=== PATIENT | female | born 1975 | race Native Hawaiian/Other Pacific Islander ===

== ENCOUNTER 2017-07-15 13:08 | Outpatient (CLI) | payer OTHER ==
[~2017-07-15] VITALS: Ht 162.6 cm; Wt 63.5 kg
== END 2017-07-15 15:15 | disposition home or self-care (01) ==
LOC: INF 13:08
DX: D64.89 Other specified anemias (principal)
CPT/HCPCS: 96365; Q0138

== ENCOUNTER 2017-07-21 13:12 | Outpatient (CLI) | payer OTHER ==
[~2017-07-21] VITALS: Ht 162.6 cm; Wt 63.5 kg
[2017-07-21 13:30] VITALS: BP 123/76; TEMP 98
[2017-07-21 14:22] VITALS: BP 116/70
== END 2017-07-21 15:10 | disposition home or self-care (01) ==
LOC: INF 13:12
DX: D64.89 Other specified anemias (principal)
CPT/HCPCS: 96365; Q0138

== ENCOUNTER 2017-08-31 13:48 | Outpatient (CLI) | payer OTHER | END 2017-08-31 19:22 | disposition home or self-care (01) | LOC: RAD 13:48 | DX: M25.512 Pain in left shoulder (principal) ==

== ENCOUNTER 2017-10-09 11:59 | Emergency (ER) | payer OTHER ==
[~2017-10-09] VITALS: Ht 162.6 cm; Wt 63.5 kg
[2017-10-09 13:36] LABS: PLATELET COUNT 300 K/uL (152-353)
[2017-10-09 13:39] LABS: SODIUM 132 mmol/L (136-145)
[2017-10-09 14:50] VITALS: BP 128/84; TEMP 98
== END 2017-10-09 14:50 | disposition home or self-care (01) ==
LOC: ED 11:59
PROVIDERS: Emergency Medicine
DX: D64.9 Anemia, unspecified (principal); R00.0 Tachycardia, unspecified
CPT/HCPCS: 36415; 80053; 81000; 82550; 84484; 85027; 93005; 96360; 99284